=== PATIENT | female | born 1955 | race Caucasian/White ===

== ENCOUNTER 2020-08-07 11:58 | Emergency (ER) | payer OTHER ==
[~2020-08-07] VITALS: Ht 149.8 cm; Wt 79.8 kg
[~2020-08-07 11:58] MED LIST: ADVAIR 500/501 E1 INH; AMBIEN10 MG PO; AUGMENTIN 875 M1 TAB PO; AUGMENTIN 875875 MG PO; BUSPAR10 MG PO; CEFTIN250 MG PO; CELEXA20 MG PO; CIPRO500 MG; CIPRO750 MG PO; CIPROFLOXACIN500 MG PO; COZAAR25 MG PO; DALI500T; DALI500T PO; DALIRESP; DAYPRO600 M1 PO; DELTASONE5 MG; DELTASONE5 MG PO; DITROPAN5 MG PO; DOXYCYCLINE HY100 M5 PO; DOXYCYCLINE100 M2 PO; DOXYCYCLINE100 M3 PO; DUONEB 3ML 3 MG/3 ML; DUONEB 3ML 3 MG/3 ML INH; FLOMAX0.4 MG PO; HYDROCODONE BIT1 T11 PO; LEVOFLOXACIN500 MG PO; MAXZIDE 25 MG-31 TAB PO; MAXZIDE-25 25MG25 MG PO; MEDROL DOSEPAK4 MG PO; MOTRIN800 MG PO; MYAMBUTOL400 MG PO; NAPROSYN500 MG PO; NILSTAT,MY500000 UN/ PO; NORVASC10 MG PO; PREDNICOT20 MG PO; PREDNISONE PO; PREDNISONE1 MG PO; PREDNISONE20 MG PO; PREDNISONE5 MG PO; PROTONIX40 MG PO; PULMICORT RESP0.5 M1 INH; PULMICORT RESP0.5 MG INH; RIMACTANE300 MG PO; ROBAXIN750 MG PO; ROCEPHIN1 GM IJ; SINGULAIR10 MG PO; SOLU-MEDROL IV; SOLU-MEDROL40 MG IV; SOLU-MEDROL40 MG PO; SPIRIVA -- 3018 MCG INH; TIZANIDINE HCL4 MG PO; TORADOL10 MG PO; TRAMADOL HCL50 MG PO; TYLENOL W/CODEI1 TA2 PO; VICODIN 5/500 505 MG PO; VICODIN 500 MG-1 TAB PO; VICODIN ES 7501 TAB PO; VICOPROFEN 7.51 TA1 PO; XANAX0.25 MG PO; XANAX1 MG PO; ZITHROMAX TRI-500 MG PO; Zofran4 MG PO
[2020-08-07 13:38] LABS: BASO # 0.1 10*3/uL (0.0-0.1); BASO % 0.5 % (0.0-1.0); EOS # 0.3 10*3/uL (0.0-0.4); EOS % 3.1 % (1.0-4.0); HEMATOCRIT 43.4 % (37.0-47.0); LYMPH # 2.3 10*3/uL (1.3-4.4); MEAN CELL VOLUME 90.6 fl (81.0-99.0); MEAN CORPUSCULAR HGB 29.9 pg (27.0-31.0); MEAN CORPUSCULAR HGB CONC 32.9 g/dl (33.0-37.0); MONO # 0.6 10*3/uL (0.1-1.0); MONO % 6.5 % (3.0-9.0); NEUT # 5.9 10*3/uL (2.3-7.9); NEUT % 64.7 % (47.0-73.0); PLATELET COUNT AUTOMATED 269 10*3/uL (130-400); RED BLOOD COUNT 4.79 10*6/uL (4.10-5.10); RED CELL DISTRI WIDTH 11.9 % (0-14.5); WHITE BLOOD COUNT 9.1 10*3/uL (4.8-10.8)
[2020-08-07 13:53] LABS: ALBUMIN 3.7 gm/dl (3.1-4.5); ALKALINE PHOSPHATASE 62 U/L (45-117); BUN 19 mg/dl (7-24); CHLORIDE 103 mmol/L (98-107); CREATININE 0.85 mg/dL (0.55-1.02); POTASSIUM 3.7 mmol/L (3.5-5.1); SGOT/AST 14 IU/L (3-35); SGPT/ALT 28 U/L (12-78); SODIUM 137 mmol/L (136-145); TOTAL PROTEIN 7.5 gm/dL (6.4-8.2)
[2020-08-07] MEDS ORDERED: PREDNISONE10 MG PO (14:28)
[2020-08-07] MEDS ORDERED: CYCLOBENZAPRINE5 M3 PO (14:28)
[2020-08-07] MEDS ORDERED: Motrin,Rufen800 MG PO (14:28)
== END 2020-08-07 14:40 | disposition home or self-care (01) ==
LOC: ED 11:58
PROVIDERS: Nurse Practitioner
DX: M54.41 Lumbago with sciatica, right side (principal); J44.1 Chronic obstructive pulmonary disease with (acute) exacerbation; Z88.6 Allergy status to analgesic agent; Z79.899 Other long term (current) drug therapy; Z98.51 Tubal ligation status

== ENCOUNTER 2023-08-19 09:40 | Emergency (ER) | payer MEDICARE ==
[~2023-08-19] VITALS: Ht 149.8 cm; Wt 88.9 kg
[~2023-08-19 09:40] MED LIST changes: +CYCLOBENZAPRINE5 M3 PO; +Motrin,Rufen800 MG PO; +PREDNISONE10 MG PO
[2023-08-19 10:19] LABS: BASO # 0.1 10*3/uL (0.0-0.1); BASO % 0.5 % (0.0-1.0); EOS % 0.1 % (1.0-4.0); LYMPH # 2.3 10*3/uL (1.3-4.4); LYMPH % 23.2 % (27.0-41.0); MEAN CELL VOLUME 91.7 fl (81.0-99.0); MEAN CORPUSCULAR HGB 28.4 pg (27.0-31.0); MEAN PLATELET VOLUME 9.8 fl (9.6-12.3); MONO # 0.6 10*3/uL (0.1-1.0); MONO % 5.7 % (3.0-9.0); NEUT # 6.9 10*3/uL (2.3-7.9); NEUT % 70.1 % (47.0-73.0); PLATELET COUNT AUTOMATED 283 10*3/uL (130-400); RED BLOOD COUNT 4.58 10*6/uL (4.10-5.10); RED CELL DISTRI WIDTH 12.3 % (0-14.5); WHITE BLOOD COUNT 9.8 10*3/uL (4.8-10.8)
[2023-08-19 10:30] LABS: ACT PARTIAL THROMBO TIME 28.1 SECONDS (20.0-32.1)
[2023-08-19 10:38] LABS: BUN 15 mg/dl (9-23); CHLORIDE 100 mmol/L (98-107)
[2023-08-19] MEDS ORDERED: ACETAMINOPHEN 325 MG TAB PO ONE (10:45)
[2023-08-19] MEDS ORDERED: Ketorolac Tromethamine 60 MG/2 ML VIAL IM ONE (12:30)
== END 2023-08-19 12:54 | disposition home or self-care (01) ==
LOC: ED 09:40
PROVIDERS: Nurse Practitioner Family
DX: I83.811 Varicose veins of right lower extremity with pain (principal); M25.571 Pain in right ankle and joints of right foot; J44.9 Chronic obstructive pulmonary disease, unspecified; I50.9 Heart failure, unspecified; J45.909 Unspecified asthma, uncomplicated; F41.9 Anxiety disorder, unspecified; Z88.6 Allergy status to analgesic agent; Z88.8 Allergy status to other drugs, medicaments and biological substances; Z98.51 Tubal ligation status; Z98.890 Other specified postprocedural states

== ENCOUNTER → 2023-09-02 | Outpatient (CLI) | payer MEDICARE ==
[2023-09-02 09:12] LABS: BASO % 0.4 % (0.0-1.0); EOS % 0.1 % (1.0-4.0); HEMATOCRIT 43.1 % (37.0-47.0); LYMPH # 2.4 10*3/uL (1.3-4.4); LYMPH % 26.8 % (27.0-41.0); MEAN CELL VOLUME 93.5 fl (81.0-99.0); MEAN CORPUSCULAR HGB 28.4 pg (27.0-31.0); MEAN CORPUSCULAR HGB CONC 30.4 g/dl (33.0-37.0); MEAN PLATELET VOLUME 10.3 fl (9.6-12.3); MONO # 0.6 10*3/uL (0.1-1.0); NEUT # 5.9 10*3/uL (2.3-7.9); NEUT % 65.4 % (47.0-73.0); PLATELET COUNT AUTOMATED 235 10*3/uL (130-400); RED BLOOD COUNT 4.61 10*6/uL (4.10-5.10); RED CELL DISTRI WIDTH 12.2 % (0-14.5); WHITE BLOOD COUNT 9.1 10*3/uL (4.8-10.8)
[2023-09-02 10:01] LABS: BUN 12 mg/dl (9-23); CHLORIDE 100 mmol/L (98-107); POTASSIUM 3.9 mmol/L (3.4-5.1); URIC ACID 5.1 mg/dL (3.1-7.8)
== END | disposition home or self-care (01) ==
LOC: LAB 08:55
PROVIDERS: ATTEND Podiatrist Foot & Ankle Surgery
DX: M10.071 Idiopathic gout, right ankle and foot (principal)

== ENCOUNTER 2024-04-15 12:40 | Emergency (ER) | payer MEDICARE ==
[~2024-04-15] VITALS: Ht 149.8 cm; Wt 81.6 kg
[2024-04-15] MEDS ORDERED: SIMVASTATIN20 MG PO (13:20)
[2024-04-15] MEDS ORDERED: AMITRIPTYLINE25 MG PO (13:20)
[2024-04-15] MEDS ORDERED: HYDROXYZINE HCL25 MG PO (13:20)
[2024-04-15 13:58] LABS: BASO % 0.3 % (0.0-1.0); HEMATOCRIT 43.8 % (37.0-47.0); MEAN CELL VOLUME 91.8 fl (81.0-99.0); MEAN CORPUSCULAR HGB 28.7 pg (27.0-31.0); MEAN CORPUSCULAR HGB CONC 31.3 g/dl (33.0-37.0); MEAN PLATELET VOLUME 9.8 fl (9.6-12.3); MONO # 0.9 10*3/uL (0.1-1.0); NEUT # 5.2 10*3/uL (2.3-7.9); NEUT % 66.6 % (47.0-73.0); PLATELET COUNT AUTOMATED 243 10*3/uL (130-400); RED BLOOD COUNT 4.77 10*6/uL (4.10-5.10); RED CELL DISTRI WIDTH 11.9 % (0-14.5); WHITE BLOOD COUNT 7.8 10*3/uL (4.8-10.8)
[2024-04-15 14:14] LABS: BUN 9 mg/dl (9-23); CHLORIDE 101 mmol/L (98-107); POTASSIUM 3.6 mmol/L (3.4-5.1)
[2024-04-15] MEDS ORDERED: PREDNISONE50 MG PO (15:34)
[2024-04-15] MEDS ORDERED: methylPREDNISolone sod succ 125 MG VIAL IM ONE (15:35)
== END 2024-04-15 16:51 | disposition home or self-care (01) ==
LOC: ED 12:40
PROVIDERS: Nurse Practitioner Family
DX: S46.911A Strain of unspecified muscle, fascia and tendon at shoulder and upper arm level, right arm, initial encounter (principal); J44.9 Chronic obstructive pulmonary disease, unspecified; I50.9 Heart failure, unspecified; F41.9 Anxiety disorder, unspecified; F17.290 Nicotine dependence, other tobacco product, uncomplicated; Z88.6 Allergy status to analgesic agent; Z88.8 Allergy status to other drugs, medicaments and biological substances; Z98.890 Other specified postprocedural states; X58.XXXA Exposure to other specified factors, initial encounter; Y93.89 Activity, other specified; Y92.89 Other specified places as the place of occurrence of the external cause; Y99.8 Other external cause status